=== PATIENT | male | born 1970 | race Caucasian/White ===

== ENCOUNTER 2017-08-18 14:19 | Emergency (ER) | payer MEDICAID ==
[~2017-08-18] VITALS: Ht 177.8 cm; Wt 65.0 kg
[~2017-08-18 14:19] MED LIST: CEPH500C3 PO; HYDR10TA16 PO; LORA-392 PO; LORT5TAB PO; SOMA350T; SULF1TAB47 PO; VASO10TA8 PO
[2017-08-18 14:23] VITALS: BP 159/113; PULSE 122; RESP 16; TEMP 97.4; O2SAT 99
[2017-08-18 16:08] VITALS: BP 177/110; PULSE 103; RESP 16; O2SAT 98
[2017-08-18 16:12] LABS: AUTOMATED NEUTROPHIL # 5.7 TH/MM3 (1.8-7.7); BASOPHIL # 0.1 TH/MM3 (0-0.2); BASOPHIL % 0.8 % (0.0-2.0); EOSINOPHIL # 0.5 TH/MM3 (0-0.4); EOSINOPHIL % 5.6 % (0.0-4.0); HEMATOCRIT 46.6 % (39.0-51.0); HEMOGLOBIN 15.8 GM/DL (13.0-17.0); LYMPH % 18.7 % (9.0-44.0); LYMPHOCYTE # 1.6 TH/MM3 (1.0-4.8); MEAN CELL VOLUME 84.6 FL (80.0-100.0); MEAN CORPUSCULAR HEMOGLOBIN 28.7 PG (27.0-34.0); MEAN CORPUSCULAR HGB CONC 33.9 % (32.0-36.0); MEAN PLATELET VOLUME 7.7 FL (7.0-11.0); MONOCYTE # 0.8 TH/MM3 (0-0.9); NEUT % 65.9 % (16.0-70.0); PLATELET COUNT 430 TH/MM3 (150-450); RED BLOOD COUNT 5.51 MIL/MM3 (4.50-5.90); RED CELL DISTRIBUTION WIDTH 13.2 % (11.6-17.2); WHITE BLOOD COUNT 8.7 TH/MM3 (4.0-11.0)
[2017-08-18 16:24] LABS: CHLORIDE 101 MEQ/L (98-107); SODIUM (NA) 135 MEQ/L (136-145)
[2017-08-18 16:27] LABS: CALCIUM 8.5 MG/DL (8.5-10.1)
[2017-08-18 16:28] LABS: ALBUMIN 3.1 GM/DL (3.4-5.0); BICARBONATE 26.1 MEQ/L (21.0-32.0); BLOOD UREA NITROGEN 18 MG/DL (7-18); GLUCOSE,RANDOM 87 MG/DL (74-106)
[2017-08-18 16:31] LABS: ALT (GPT) 523 U/L (12-78); AST (GOT) 234 U/L (15-37); CREATININE 0.97 MG/DL (0.60-1.30); GLOMERULAR FILTRATION RATE 84 ML/MIN (>89)
[2017-08-18 16:33] LABS: TOTAL BILIRUBIN ADULT 0.2 MG/DL (0.2-1.0)
[2017-08-18 16:34] LABS: ALKALINE PHOSPHATASE 129 U/L (45-117)
[2017-08-18] MEDS ORDERED: KETOROLAC TROMETHAMINE 30 MG/ML (IVP) VIAL IV PUSH ONE (16:45)
[2017-08-18 17:56] VITALS: BP_SYST 186; BP_DIAS 102; BP_DIAS 113; PULSE 101; RESP 16; O2SAT 99
[2017-08-18] MEDS ORDERED: MORPHINE SULFATE 2 MG/ML SYRINGE IV PUSH ONE (18:00)
[2017-08-18 18:30] VITALS: BP 188/114; PULSE 99; RESP 16; O2SAT 99
--- NOTE | 2017-08-18 18:38 | RADRPT ---
EXAM DATE/TIME: 08/18/2017 17:39 [facility] COMPARISON: No previous studies available for comparison. INDICATIONS : Numbness in right foot and leg. MEDICAL HISTORY : Hypertension. SURGICAL HISTORY : Orthopedic. ENCOUNTER: Initial ACUITY: 2 weeks PAIN SCORE: 0/10 LOCATION: Right [place] TECHNIQUE: Multiplanar multisequence MRI of the lumbar spine was performed without contrast. FINDINGS: The most caudal appearing lumbar vertebra is numbered as L5. There is disc desiccation diffusely, gre atest at L4-5 and L5-S1 where mild disc space narrowing is noted. There is mild anterior osteophytosi s present. Conus unremarkable. T12-L1: The thecal sac has a normal diameter. No evidence of disc bulge or protrusion. The neural foramina are patent bilaterally. L1-L2: The thecal sac has a normal diameter. No evidence of disc bulge or protrusion. The neural foramina are patent bilaterally. L2-L3: The thecal sac has a normal diameter. No evidence of disc bulge or protrusion. The neural foramina are patent bilaterally. L3-L4: Mild diffuse disc bulge and mild facet and ligamentum flavum hypertrophy. No canal or foraminal narro wing. Mild abutment of the right L3 exiting nerve. L4-L5: Diffuse disc bulge is present abutting the L5 nerve roots right greater than left. Moderate facet and ligamentum flavum hypertrophy. No canal or foraminal narrowing. L5-S1: A diffuse disc bulge is present. This abuts the L5 exiting nerves particularly the right. There is no canal or foraminal stenosis. CONCLUSION: Degenerative changes are noted as above. Marino Shaw MD on August 18, 2017 at 18:35 Board Certified Radiologist. This report was verified electronically.
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
[2017-08-19] MEDS ORDERED: MOBI15TA PO (11:06)
[2017-08-19] MEDS ORDERED: LISI-515 PO (11:07)
[2017-08-19] MEDS ORDERED: AUGM875T3 PO (14:10)
== END 2017-08-18 19:33 | disposition left against medical advice (07) ==
LOC: PHED 14:19
DX: M21.372 Foot drop, left foot (principal); M51.36 Other intervertebral disc degeneration, lumbar region; F41.9 Anxiety disorder, unspecified; I10 Essential (primary) hypertension; F17.200 Nicotine dependence, unspecified, uncomplicated; F12.90 Cannabis use, unspecified, uncomplicated; Z79.899 Other long term (current) drug therapy; Z88.8 Allergy status to other drugs, medicaments and biological substances
CPT/HCPCS: 72148; 80053; 85025; 85652; 96374; 96375; 99284; J1885; J2270

== ENCOUNTER 2017-08-19 10:09 | Emergency (ER) | payer MEDICAID ==
[~2017-08-19] VITALS: Ht 177.8 cm; Wt 64.0 kg
[2017-08-19 10:12] VITALS: BP 169/114; PULSE 113; RESP 18; TEMP 97.8; O2SAT 99
[2017-08-19] MEDS ORDERED: KETOROLAC TROMETHAMINE 60 MG/2 ML (IM) VIAL IM ONE (11:00)
[2017-08-19] MEDS ORDERED: cloNIDine HCL 0.1 MG TAB PO ONE (11:00)
[2017-08-19 11:03] VITALS: BP 177/111; PULSE 102; RESP 16; O2SAT 97
[2017-08-19] MEDS ORDERED: MOBI15TA PO (11:06)
[2017-08-19] MEDS ORDERED: LISI-515 PO (11:07)
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
[2017-08-19 13:11] VITALS: BP 167/111; PULSE 108; RESP 16; O2SAT 98
--- NOTE | 2017-08-19 13:41 | RADRPT ---
EXAM DATE/TIME: 08/19/2017 13:02 [facility] COMPARISON: No previous studies available for comparison. INDICATIONS : Numbness in left leg. MEDICAL HISTORY : Hypertension. SURGICAL HISTORY : ORIF rt arm. ENCOUNTER: Initial ACUITY: 3 day PAIN SCORE: 0/10 LOCATION: head TECHNIQUE: Multiplanar, multisequence MRI of the brain was performed without contrast. FINDINGS: CEREBRUM: The ventricles are normal for age. No evidence of midline shift, mass lesion, hemorrhage or acute in farction. No extraaxial fluid collections are seen. The pituitary gland and suprasellar cistern are normal in configuration. WHITE MATTER: No significant signal abnormalities are seen in the white matter. POSTERIOR FOSSA: The cerebellum and brainstem are intact. The 4th ventricle is midline. The cerebellopontine angle is unremarkable. The cerebellar tonsils are normal in position. DIFFUSION IMAGING: No focal areas of restricted diffusion are seen. No evidence of acute infarction. EXTRACRANIAL: Multiple opacified anterior mid ethmoid air cells. CONCLUSION: 1. No acute findings in the brain. 2. Bilateral ethmoid sinus disease. Chino Reyes MD on August 19, 2017 at 13:28 Board Certified Radiologist. This report was verified electronically.
[2017-08-19] MEDS ORDERED: ACETAMINOPHEN 325 MG TAB PO ONE (13:45)
[2017-08-19] MEDS ORDERED: AUGM875T3 PO (14:10)
== END 2017-08-19 14:20 | disposition home or self-care (01) ==
LOC: PHED 10:09
DX: M79.2 Neuralgia and neuritis, unspecified (principal); I10 Essential (primary) hypertension; J01.20 Acute ethmoidal sinusitis, unspecified; M21.372 Foot drop, left foot; G89.29 Other chronic pain; M54.9 Dorsalgia, unspecified; F41.9 Anxiety disorder, unspecified; F17.200 Nicotine dependence, unspecified, uncomplicated; F12.90 Cannabis use, unspecified, uncomplicated
CPT/HCPCS: 70551; 96372; 99284; J1885